=== PATIENT | female | born 1950 | race Caucasian/White ===

== ENCOUNTER 2016-10-31 17:06 | Emergency (ER) | payer OTHER ==
[~2016-10-31] VITALS: Ht 154.9 cm; Wt 48.0 kg
[~2016-10-31 17:06] MED LIST: 1-ME1LIQ PO; ALBU8I INH; CETI10 PO; DIAZ5 PO; ENAL20TA PO; GUAI600 PO; LEVA750T PO; PRED20 PO; TIOT18I INH; VITA-13 PO
[2016-10-31 17:08] VITALS: BP 186/88; PULSE 99; RESP 18; TEMP 99; O2SAT 94
== END 2016-10-31 19:40 | disposition left against medical advice (07) ==
LOC: NED 17:06
DX: N39.9 Disorder of urinary system, unspecified (principal)
CPT/HCPCS: 99281

== ENCOUNTER 2016-11-09 12:14 | Emergency (ER) | payer OTHER ==
[~2016-11-09] VITALS: Ht 154.9 cm; Wt 48.0 kg
[2016-11-09 12:16] VITALS: BP 164/78; PULSE 78; RESP 15; TEMP 98.4; O2SAT 98
[2016-11-09 13:42] LABS: BACTERIA, URINE RARE /hpf; BLOOD, URINE NEG (NEG); COMMENT (UR) CULTURE INDICATED; CULTURE IF INDICATED CULTURE INDICATED; GLUCOSE,URINE NEG (NEG); HYALINE CAST, URINE INNUM /lpf (RARE); KETONE, URINE NEG (NEG); MUCUS URINE FEW /lpf (OCC); PH, URINE 5.5 (5.0-8.5); SQUAMOUS EPITHELIAL CELL URINE 8 /hpf (0-5)
[2016-11-09] MEDS ORDERED: MULTTAB67 PO (13:43)
[2016-11-09] MEDS ORDERED: ENAL20TA PO (13:43)
[2016-11-09] MEDS ORDERED: ATEN50TA PO (13:43)
[2016-11-09] MEDS ORDERED: CART180C3 PO (13:43)
[2016-11-09] MEDS ORDERED: TAMO20TA6 PO (13:43)
[2016-11-09 13:46] LABS: NITRITE,URINE POS (NEG); URINE COLOR DARK-BROWN (YELLW/STRAW)
[2016-11-09] MEDS ORDERED: LEVOFLOXACIN 750 MG TAB PO ONE (14:15)
[2016-11-09] MEDS ORDERED: LEVA750T9 PO (14:42)
--- NOTE | 2016-11-09 14:42 | PD ---
HPI Chief Complaint: Complaint Time Seen by Provider: 13:42 Travel History International Travel<30 days: No Contact w/Intl Traveler<30days: No Traveled to known affect area: No History of Present Illness HPI 66 old woman presents emergent from of UTI symptoms for the past 2 weeks. She has dysuria lower abdominal discomfort similar to previous urinary tract infections in the past. She's completed 2 courses of Macrodantin without relief. She was seen in the emergency department at [facility] recently had a CT, labs, with no other abnormality reported. She reports that she is on her last a Macrodantin but is still having symptoms. She is taking Pyridium. No vaginal discharge or vaginal irritation. No other complaints. History Past Medical History Narrative Medical COPD Hypertension History of metastatic breast CA, now in remission, on tamoxifen Influenza Vaccination: Yes Menopausal: Yes Social History Alcohol Use: Yes (WINE USUALLY WITH DINNER) Tobacco Use: Yes (10 CIGS/DAY) Allergies-Medications (Allergen,Severity, Reaction): Coded Allergies: Betadine (Verified Allergy, Severe, Rash, 11/09/16) Erythromycin (Verified Allergy, Severe, Nausea/Vomiting, 11/09/16) Keflex (Verified Allergy, Severe, Rash, 11/09/16) Uncoded Allergies: DIAL SOAP (Allergy, Severe, Rash, 11/26/11) Reported Meds & Prescriptions Reported Meds & Active Scripts Active Reported Multiple Vitamin 1 Tab 1 Tab PO DAILY Tamoxifen (Tamoxifen Citrate) 20 Mg Tab 20 Mg PO HS Cartia Xt (Diltiazem HCl) 180 Mg Cap.er.24h 180 Mg PO BID Atenolol 50 Mg Tab 50 Mg PO DAILY Enalapril (Enalapril Maleate) 20 Mg Tab 20 Mg PO BID Review of Systems Except as stated in HPI: all other systems reviewed are Neg Physical Exam Narrative GENERAL: Well-appearing 66 year-old woman, nontoxic, no acute distress. SKIN: Focused skin assessment warm/dry. CARDIOVASCULAR: Regular rate and rhythm. No murmur appreciated. RESPIRATORY: No accessory muscle use. Clear to auscultation. Breath sounds equal bilaterally. GASTROINTESTINAL: Abdomen soft, non-tender, nondistended. Hepatic and splenic margins not palpable. MUSCULOSKELETAL: No obvious deformities. Data Data Last Documented VS Vital Signs Date Time Temp Pulse Resp B/P Pulse Ox O2 Delivery O2 Flow Rate FiO2 11/09/16 12:16 98.4 78 15 164/78 98 Orders Urinalysis - C+S If Indicated (11/09/16 12:24) Urine Culture (11/09/16 12:40) Levofloxacin (Levaquin) (11/09/16 14:15) Labs Laboratory Tests Test 11/09/16 12:40 Urine Color DARK-BROWN Urine Turbidity HAZY Urine pH 5.5 Urine Specific [place] 1.023 Urine Protein 30 mg/dL Urine Glucose (UA) NEG mg/dL Urine Ketones NEG mg/dL Urine Occult Blood NEG Urine Nitrite POS Urine Bilirubin NEG Urine Urobilinogen 4.0 MG/DL Urine Leukocyte Esterase NEG Urine RBC 4 /hpf Urine WBC 15 /hpf Urine Squamous Epithelial 8 /hpf Cells Urine Bacteria RARE /hpf Urine Hyaline Casts INNUM /lpf Urine Mucus FEW /lpf Microscopic Urinalysis Comment CULTURE INDICATED MDM Medical Decision Making Medical Screen Exam Complete: Yes Emergency Medical Condition: Yes Interpretation(s) UA with pyuria, positive nitrites Differential Diagnosis urethritis, cervicitis, cystitis, other Narrative Course Medical decision-making 66 old woman with persistent cystitis symptoms despite treatment with Macrodantin. They treated her again with Macrodantin not sure why. She reportedly had a CT scan of lab work that was negative. She states it feels exactly similar to previous urinary tract infections. Denies any vaginal atrophy of vaginal irritation or discharge. We'll treat with Levaquin. Urine is sent for culture. Diagnosis Primary Impression: UTI (urinary tract infection) Additional Instructions: Take antibiotic says prescribed. With her primary physician in the next 2-4 days. Return to the emergency department for any fevers, back pain, vomiting, or any other new or worsening symptoms. Scripts Levofloxacin (Levaquin)750 Mg Tablet1 Tab PO DAILY 5 Days Prov:Henry Baig MD 11/09/16 Disposition: 01 DISCHARGE HOME Condition: Stable Henry Baig MD Nov 09, 2016 14:42
== END 2016-11-09 14:52 | disposition home or self-care (01) ==
LOC: NEPD 12:14
DX: N39.0 Urinary tract infection, site not specified (principal); I10 Essential (primary) hypertension; J44.9 Chronic obstructive pulmonary disease, unspecified; Z85.3 Personal history of malignant neoplasm of breast; F17.210 Nicotine dependence, cigarettes, uncomplicated
CPT/HCPCS: 81001; 87086; 99283

== ENCOUNTER 2016-12-15 23:28 | Emergency (ER) | payer OTHER ==
[~2016-12-15] VITALS: Ht 154.9 cm; Wt 48.0 kg
[~2016-12-15 23:28] MED LIST changes: -1-ME1LIQ PO; -ALBU8I INH; +ATEN50TA PO; +CART180C3 PO; -CETI10 PO; -DIAZ5 PO; -GUAI600 PO; -LEVA750T PO; +LEVA750T9 PO; +MULTTAB67 PO; -PRED20 PO; +TAMO20TA6 PO; -TIOT18I INH; -VITA-13 PO
[2016-12-15 23:30] VITALS: BP 186/88; PULSE 80; RESP 18; TEMP 98.5; O2SAT 95
[2016-12-16 03:03] LABS: BACTERIA, URINE RARE /hpf; BLOOD, URINE LARGE (NEG); COMMENT (UR) CULTURE INDICATED; CULTURE IF INDICATED CULTURE INDICATED; GLUCOSE,URINE NEG (NEG); HYALINE CAST, URINE 1 /lpf (RARE); KETONE, URINE TRACE mg/dL (NEG); MUCUS URINE FEW /lpf (OCC); NITRITE,URINE NEG (NEG); SQUAMOUS EPITHELIAL CELL URINE 1 /hpf (0-5); URINE COLOR YELLOW (YELLW/STRAW)
[2016-12-16] MEDS ORDERED: CIPR-9 PO (03:09)
--- NOTE | 2016-12-16 03:09 | PD ---
HPI Chief Complaint: Complaint Time Seen by Provider: 01:32 Travel History International Travel<30 days: No Contact w/Intl Traveler<30days: No Traveled to known affect area: No History of Present Illness HPI The patient is a 66 year old female who presents to the [facility] emergency department with a history of dysuria with urinary frequency and urgency that began a couple weeks ago. The patient reports that she went to see her primary care physician and had a urinalysis done that was suspicious for a urinary tract infection. She reports that she was treated for 5 days with nitrofurantoin. She reports that the symptoms seemed to improve, however today around 10 PM she noticed that she had dysuria again and blood in her urine. She denies having any flank pain. She denies having any fevers or chills. She denies having any nausea, vomiting, or diarrhea. Otherwise on review of systems she denies any recent cough, congestion, neck pain, chest pain , shortness of breath, abdominal pain, or neurologic symptoms. [facility] Past Medical History Narrative Medical The patient's past medical history is significant for breast cancer that is metastatic followed by , history of anxiety disorder, history of bronchitis, hypertension, history of spinal cord compression at T9 status post emergent decompression, history of radiation therapy related to bony metastasis. Asthma: No Blood Disorders: No Anxiety: Yes Depression: No Heart Rhythm Problems: No Cancer: Yes (BREAST WITH METS TO SPINE) Cardiovascular Problems: Yes (HTN) High Cholesterol: No Chemotherapy: No Chest Pain: No Congestive Heart Failure: No COPD: Yes (?) Diabetes: No Endocrine: No Genitourinary: No Hypertension: Yes Immune Disorder: No Implanted Vascular Access Dvce: Yes Musculoskeletal: Yes (COMPRESSION FRACTURE) Neurologic: Yes (SCIATICA) Psychiatric: Yes Reproductive: No Respiratory: Yes (PNEUMONIA) Pneumonia: Yes Radiation Therapy: Yes (2011) Sleep Apnea: No Thyroid Disease: No Menopausal: Yes Ovarian Cysts: Yes (RIGHT OVARY REMOVED) Past Surgical History Narrative Surgical The patient's past surgical history is significant for a right breast biopsy, right oophorectomy, T8 T9 T10 partial decompressive laminectomies, T9 corpectomy and spinal cord decompression, tonsillectomy, right mastectomy. Abdominal Surgery: No Body Medical Devices: RODS AND PINS IN T9 Cardiac Surgery: No Ear Surgery: No Endocrine Surgery: No Eye Surgery: No Genitourinary Surgery: No Gynecologic Surgery: Yes (OVARIAN) Oral Surgery: No Thoracic Surgery: No Tonsillectomy: Yes Other Surgery: Yes (TONSILECTOMY, CYST, OVARY, RIGHT BREAST SURGERY) Social History Alcohol Use: Yes (WINE USUALLY WITH DINNER) Tobacco Use: Yes (10 CIGS/DAY) Substance Use: No Allergies-Medications (Allergen,Severity, Reaction): Coded Allergies: cephalexin (Unverified Allergy, Severe, Rash, 11/18/16) erythromycin base (Unverified Allergy, Severe, Nausea/Vomiting, 11/18/16) povidone-iodine (Unverified Allergy, Severe, Rash, 11/18/16) Uncoded Allergies: DIAL SOAP (Allergy, Severe, Rash, 11/26/11) Reported Meds & Prescriptions Reported Meds & Active Scripts Active Cipro (Ciprofloxacin HCl) 500 Mg Tab 500 Mg PO BID 7 Days Reported Multiple Vitamin 1 Tab 1 Tab PO DAILY Tamoxifen (Tamoxifen Citrate) 20 Mg Tab 20 Mg PO HS Cartia Xt (Diltiazem HCl) 180 Mg Cap.er.24h 180 Mg PO BID Atenolol 50 Mg Tab 50 Mg PO DAILY Enalapril (Enalapril Maleate) 20 Mg Tab 20 Mg PO BID Review of Systems Except as stated in HPI: all other systems reviewed are Neg General / Constitutional: No: Fever Eyes: No: Visual changes HENT: No: Headaches Cardiovascular: No: Chest Pain or Discomfort Respiratory: No: Shortness of Breath Gastrointestinal: No: Abdominal Pain Genitourinary: Positive: Dysuria, Hematuria, No: Flank Pain Musculoskeletal: No: Pain Skin: No Rash Neurologic: No: Weakness Psychiatric: No: Depression Endocrine: No: Polydipsia Hematologic/Lymphatic: No: Easy Bruising Physical Exam Narrative General: The patient is a well-developed thin appearing female in no acute distress. Head and Neck exam: Head is normocephalic atraumatic. Eyes: EOMI, pupils are equal round and reactive to light. Nose: Midline septum with pink mucous membranes Mouth: Dentition unremarkable. Moist mucus membranes. Posterior oropharynx is not erythematous. No tonsillar hypertrophy. Uvula midline. Airway patent. Neck: No palpable lymphadenopathy. No nuchal rigidity. No thyromegaly. Cardiovascular: Regular rate and rhythm without murmurs, gallops, or rubs. No pulse deficit to the extremities and some of the anus auscultation and palpation of her radial artery. Lungs: Clear to auscultation bilaterally. No wheezes, rhonchi, or rales. Abdomen: Soft, without tenderness to palpation in all 4 quadrants of the abdomen. No guarding, rebound, or rigidity. Normal bowel sounds are audible. No tenderness on palpation of McBurney's point. Extremities: No clubbing or cyanosis. The patient has trace pedal edema which she reports is chronic and intermittent. 2+ pulses in all 4 extremities. Back: No costovertebral angle tenderness to palpation. Neurologic Exam: Grossly nonfocal. Skin Exam: No rash noted. Intact skin that is warm and dry. Data Data Last Documented VS Vital Signs Date Time Temp Pulse Resp B/P (MAP) Pulse Ox O2 Delivery O2 Flow Rate FiO2 12/16/16 01:08 12/15/16 23:30 98.5 80 18 95 Orders Orders Urinalysis - C+S If Indicated (12/16/16 01:34) Urine Culture (12/16/16 02:29) Ciprofloxacin (Cipro) (12/16/16 03:15) Labs Laboratory Tests Test 12/16/16 02:29 Urine Color YELLOW Urine Turbidity HAZY Urine pH 6.0 Urine Specific [place] 1.012 Urine Protein TRACE mg/dL Urine Glucose (UA) NEG mg/dL Urine Ketones TRACE mg/dL Urine Occult Blood LARGE Urine Nitrite NEG Urine Bilirubin NEG Urine Urobilinogen LESS THAN 2.0 MG/DL Urine Leukocyte Esterase SMALL Urine RBC /hpf Urine WBC 96 /hpf Urine Squamous Epithelial Cells 1 /hpf Urine Bacteria RARE /hpf Urine Hyaline Casts 1 /lpf Urine Mucus FEW /lpf Microscopic Urinalysis Comment CULTURE INDICATED MDM Medical Decision Making Medical Screen Exam Complete: Yes Emergency Medical Condition: Yes Medical Record Reviewed: Yes Differential Diagnosis Hemorrhagic cystitis, versus kidney stone, versus bladder tumor Narrative Course During the course of the patients emergency department visit, the patients history, examination, and differential diagnosis were reviewed with the patient. The patient on arrival back to the room was anxious to have her workup completed as she had a prolonged wait out in triage. Initially it was written in the triage note that the patient had vaginal bleeding, however the patient denies this. The patient prefers to not wait for blood work. She would like a urinalysis done. The patient's urinalysis reveals evidence of trace ketones, large occult blood, small leukocyte esterase, innumerable rbc's, 96 WBCs, rare bacteria. Culture indicated. The patient was initially provided ciprofloxacin 500 mg by mouth 1. The patient's case was further discussed with her. As the patient has had dysuria with a urinary tract infection recently, I suspect that the patient has hemorrhagic cystitis. The patient was agreeable with the plan to proceed with treatment with a different class of antibiotic. She will follow-up closely regarding her urine culture results as well as with her primary care physician for reexamination. The patient was discharged home with a prescription for ciprofloxacin. The patient is resting comfortably and feels better, is alert and in no distress. The patients results and examination findings were discussed with the patient. The repeat examination is unremarkable and benign. The history, exam, diagnostic testing, and current condition do not suggest any significant pathology to warrant further testing, continued ED treatment, admission, or surgical evaluation at this point. The vital signs have been stable. The patient does not have uncontrollable pain, intractable vomiting, or other significant symptoms. The patient's condition is stable and appropriate for discharge. The patient will pursue further outpatient evaluation with a primary care physician or other designated or consulting physician as indicated in the discharge instructions. The patient expressed understanding and was agreeable with this plan. Diagnosis Primary Impression: Hemorrhagic cystitis Referrals: Primary Care Physician 3 days Patient Instructions: General Instructions, Urinary Tract Infection in Women ( ED) Med/Other Pt SpecificInfo: Prescription(s) given Scripts Ciprofloxacin (Cipro) 500 Mg Tab 500 MG PO BID for Infection for 7 Days, #13 TAB 0 Refills Prov: Shaista Holbrook MD 12/16/16 Disposition: 01 DISCHARGE HOME Condition: Stable Shaista Holbrook MD Dec 16, 2016 03:09
[2016-12-16] MEDS ORDERED: CIPROFLOXACIN 500 MG TAB PO ONE (03:15)
== END 2016-12-16 04:00 | disposition home or self-care (01) ==
LOC: NEPE 23:28
DX: N30.90 Cystitis, unspecified without hematuria (principal); Z72.0 Tobacco use
CPT/HCPCS: 81001; 87086; 99283

== ENCOUNTER 2017-03-12 21:40 | Emergency (ER) | payer OTHER ==
[~2017-03-12] VITALS: Ht 154.9 cm; Wt 47.0 kg
[~2017-03-12 21:40] MED LIST changes: +CIPR-9 PO; -LEVA750T9 PO
[2017-03-12 21:42] VITALS: BP 144/84; PULSE 97; RESP 18; TEMP 98; O2SAT 97
[2017-03-12 22:00] VITALS: BP 169/84; PULSE 80; RESP 16; O2SAT 97
[2017-03-12] MEDS ORDERED: SODIUM CHLOR 0.9% 1000 ML INJ 1,000 ML IV SCH (22:01)
[2017-03-12] MEDS ORDERED: FAMOTIDINE 20 MG/2 ML VIAL IV PUSH ONE (22:15)
[2017-03-12] MEDS ORDERED: EPINEPHrine HCL (1:1000) 1 MG/ML VIAL IM ONE (22:15)
[2017-03-12] MEDS ORDERED: diphenhydrAMINE HCL 50 MG/ML VIAL IVP ONE (22:15)
[2017-03-12] MEDS ORDERED: SODIUM CHLORIDE 0.9% FLUSH 10 ML FLUSH IV FLUSH PRN (22:15)
[2017-03-12] MEDS ORDERED: methylPREDNISolone SOD SUCC 125 MG/2 ML VIAL IV PUSH ONE (22:15)
[2017-03-12 22:18] VITALS: RESP 16; O2SAT 98
--- NOTE | 2017-03-13 00:21 | PD ---
HPI Chief Complaint: Allergic/Adverse Reaction Time Seen by Provider: 21:58 Travel History International Travel<30 days: No Contact w/Intl Traveler<30days: No Traveled to known affect area: No History of Present Illness HPI 66-year-old female came to the emergency room with an allergic reaction. Patient says that she ate her dinner and soon after started noticing that her tongue was swelling. This was mostly on the right side. She was worried that she would have airway closed and hence came to the emergency room. She was having some difficulty swallowing. No history of shortness of breath or any stridor. Vital signs are stable. Patient says that she's never had this kind of reaction in the past. She is awake and talking although has some difficulty because of the tongue swelling. Answering questions appropriately. [facility] Past Medical History Narrative Medical List of her past medical, surgical, social and family history is reviewed from the nursing note. Asthma: No Blood Disorders: No Anxiety: Yes Depression: No Heart Rhythm Problems: No Cancer: Yes (BREAST WITH METS TO SPINE) Cardiovascular Problems: Yes (HTN) High Cholesterol: No Chemotherapy: No Chest Pain: No Congestive Heart Failure: No COPD: Yes Diabetes: No Endocrine: No Genitourinary: No Hypertension: Yes Immune Disorder: No Implanted Vascular Access Dvce: Yes Musculoskeletal: Yes (COMPRESSION FRACTURE) Neurologic: Yes (SCIATICA) Psychiatric: Yes Reproductive: No Respiratory: Yes (PNEUMONIA) Pneumonia: Yes (HX) Radiation Therapy: Yes (2011) Sleep Apnea: No Thyroid Disease: No Tetanus Vaccination: Unknown Menopausal: Yes Ovarian Cysts: Yes (RIGHT OVARY REMOVED) Past Surgical History Abdominal Surgery: No Body Medical Devices: RODS AND PINS IN T9 Cardiac Surgery: No Ear Surgery: No Endocrine Surgery: No Eye Surgery: No Genitourinary Surgery: No Gynecologic Surgery: Yes (OVARIAN) Neurologic Surgery: No Oral Surgery: No Thoracic Surgery: No Tonsillectomy: Yes Other Surgery: Yes (TONSILECTOMY, CYST, OVARY, RIGHT MASTECTOMY) Social History Alcohol Use: Yes (WINE USUALLY WITH DINNER) Tobacco Use: Yes (10 CIGS/DAY) Substance Use: No Allergies-Medications (Allergen,Severity, Reaction): Coded Allergies: cephalexin (Unverified Allergy, Severe, Rash, 11/18/16) erythromycin base (Unverified Allergy, Severe, Nausea/Vomiting, 11/18/16) povidone-iodine (Unverified Allergy, Severe, Rash, 11/18/16) Uncoded Allergies: DIAL SOAP (Allergy, Severe, Rash, 11/26/11) Comments List of her allergies reviewed from the nursing note. Reported Meds & Prescriptions Reported Meds & Active Scripts Active Prednisone 20 Mg Tab 20 Mg PO BID 3 Days Amlodipine (Amlodipine Besylate) 5 Mg Tab 5 Mg PO DAILY Cipro (Ciprofloxacin HCl) 500 Mg Tab 500 Mg PO BID 7 Days Reported Multiple Vitamin 1 Tab 1 Tab PO DAILY Tamoxifen (Tamoxifen Citrate) 20 Mg Tab 20 Mg PO HS Cartia Xt (Diltiazem HCl) 180 Mg Cap.er.24h 180 Mg PO BID Atenolol 50 Mg Tab 50 Mg PO DAILY Enalapril (Enalapril Maleate) 20 Mg Tab 20 Mg PO BID Narrative Medication Rest of her home medications reviewed from the nursing note. Review of Systems Except as stated in HPI: all other systems reviewed are Neg Physical Exam Narrative GENERAL: Awake, alert, anxious, mild distress SKIN: Focused skin assessment warm/dry. HEAD: Atraumatic. Normocephalic. EYES: Pupils equal and round. No scleral icterus. No injection or drainage. ENT: No nasal bleeding or discharge. Mucous membranes pink and moist. Tongue is swollen especially on the right side of the tongue. No swelling on the back of the throat NECK: Trachea midline. No JVD. CARDIOVASCULAR: Regular rate and rhythm. No murmur appreciated. RESPIRATORY: No accessory muscle use. Clear to auscultation. Breath sounds equal bilaterally. GASTROINTESTINAL: Abdomen soft, non-tender, nondistended. Hepatic and splenic margins not palpable. MUSCULOSKELETAL: No obvious deformities. No clubbing. No cyanosis. No edema. NEUROLOGICAL: Awake and alert. No obvious cranial nerve deficits. Motor grossly within normal limits. Normal speech. PSYCHIATRIC: Appropriate mood and affect; insight and judgment normal. Data Data Last Documented VS Orders Orders Ecg Monitoring (03/12/17 22:01) Iv Access Insert/Monitor (03/12/17 22:01) Oximetry (03/12/17 22:01) Diphenhydramine Inj (Benadryl Inj) (03/12/17 22:15) Methylprednisolone So Succ Inj (Solumedr (03/12/17 22:15) Famotidine Inj (Pepcid Inj) (03/12/17 22:15) Sodium Chlor 0.9% 1000 Ml Inj (Ns 1000 M (03/12/17 22:01) Sodium Chloride 0.9% Flush (Ns Flush) (03/12/17 22:15) Epinephrine (1:1000) Inj (Adrenalin (1:1 (03/12/17 22:15) Ed Discharge Order (03/13/17 03:26) MDM Medical Decision Making Medical Screen Exam Complete: Yes Emergency Medical Condition: Yes Medical Record Reviewed: Yes Differential Diagnosis Angioedema, FANNY inhibitor related angioedema Narrative Course 12:16 AM patient was given subcutaneous epinephrine, IV Solu-Medrol, IV Pepcid and IV Benadryl. I just reassessed her and her tongue looks much better. There is still some remaining swelling. Patient is on enalapril and I tried to explain to her that this could be an FANNY inhibitor induced anaphylactoid reaction. My recommendation would be to stop taking FANNY inhibitor altogether. Patient will be discharged home on a different antihypertensive medication if she continues to improve. She will be watched until 2 AM. 3:22 AM I just reassessed her and her swelling is significantly down. Patient feels comfortable going home. I'm comfortable discharging her home. I will start her on amlodipine instead of the enalapril. Critical Care Narrative Aggregate critical care time was 45 minutes. Time to perform other separately billable procedures was not included in the critical care time. My time did not include minutes spent treating any other patients simultaneously or on activities that did not directly contribute to the patient's treatment. The services I provided to this patient were to treat and/or prevent clinically significant deterioration that could result in: Angioedema, upper airway swelling, epinephrine administration I provided critical care services requiring my management, as noted below: Chart data review, documentation time, medication orders and management, vital sign assessments/reviewing monitor data, ordering and reviewing lab tests, ordering and interpreting/reviewing x-rays and diagnostic studies, care of the patient and discussion of the patient with the admitting physicians. Procedures EKG Prior to Arrival: No Diagnosis Primary Impression: Angioedema Qualified Codes: T78.3XXA - Angioneurotic edema, initial encounter Additional Impression: Anaphylactoid reaction Qualified Codes: T78.2XXA - Anaphylactic shock, unspecified, initial encounter Referrals: Primary Care Physician Med/Other Pt SpecificInfo: Prescription(s) given Scripts Prednisone (Prednisone) 20 Mg Tab 20 MG PO BID for 3 Days, #6 TAB 0 Refills Prov: Jim Fuentes MD 03/13/17 Amlodipine (Amlodipine) 5 Mg Tab 5 MG PO DAILY for Blood Pressure Management, #30 TAB 0 Refills Prov: Jim Fuentes MD 03/13/17 Disposition: 01 DISCHARGE HOME Condition: Stable Jim Fuentes MD Mar 13, 2017 00:21
[2017-03-13 01:51] VITALS: BP 159/82; PULSE 64; RESP 18; O2SAT 93
[2017-03-13] MEDS ORDERED: AMLO5TAB2 PO (03:25)
[2017-03-13] MEDS ORDERED: PRED20 PO (03:25)
== END 2017-03-13 04:13 | disposition home or self-care (01) ==
LOC: NEPC 21:40
DX: T78.3XXA Angioneurotic edema, initial encounter (principal); T78.2XXA Anaphylactic shock, unspecified, initial encounter; I10 Essential (primary) hypertension; J44.9 Chronic obstructive pulmonary disease, unspecified; Z72.0 Tobacco use
CPT/HCPCS: 96372; 96374; 96375; 99291; J0171; J1200; J2930; J7030